=== PATIENT | female | born 1995 | race Two or more races ===

== ENCOUNTER 2016-05-16 20:23 | Observation (INO) | payer MEDICAID ==
[2016-05-16 21:12] LABS: Urine Bilirubin Negative (Negative); Urine Blood Negative /uL (Negative); Urine Color Yellow (Yellow); Urine Glucose Normal (Normal); Urine Ketone TRACE (Negative); Urine Mucus FEW (None Seen); Urine Nitrite Negative (Negative); Urine RBC 3 /hpf (0 - 4); Urine Squamous Epithelial Cell FEW /hpf (<5); Urine pH 6.5 (5.0-8.0)
== END 2016-05-16 22:26 | disposition home or self-care (01) | DRG 566 ==
LOC: LDRP 20:23
PROVIDERS: ADMIT Specialist; ATTEND Specialist
DX: O26.893 Other specified pregnancy related conditions, third trimester (principal); R10.2 Pelvic and perineal pain; O62.9 Abnormality of forces of labor, unspecified; Z3A.35 35 weeks gestation of pregnancy
CPT/HCPCS: 59025; 76815; 81001; G0378; G0434; 96365; 96366

== ENCOUNTER 2016-06-16 09:35 | Observation (INO) | payer MEDICAID ==
[2016-06-16] MEDS ORDERED: PREN-153 OR (10:51)
== END 2016-06-16 10:45 | disposition home or self-care (01) | DRG 566 ==
LOC: LDRP 09:35
PROVIDERS: ADMIT Specialist; ATTEND Specialist
DX: O62.9 Abnormality of forces of labor, unspecified (principal); O48.0 Post-term pregnancy; Z3A.40 40 weeks gestation of pregnancy
CPT/HCPCS: 59025; 81002; G0378

== ENCOUNTER 2016-06-16 23:01 | Inpatient (IN) | payer MEDICAID ==
[~2016-06-16] VITALS: Ht 162.6 cm; Wt 72.6 kg
[~2016-06-16 23:01] MED LIST: PREN-153 OR
[2016-06-16] MEDS ORDERED: PENICILLIN G POT 5MIL/D5 50ML 50 ML IV ONE ×2 (23:27→23:45)
[2016-06-16] MEDS ORDERED: LACT. RINGERS/OXYTOCIN 20UNITS 1,000 ML IV SCH (23:32)
[2016-06-16] MEDS: LACTATED RINGER'S 1,000 ML IV SCH (23:40)
[2016-06-16] MEDS ORDERED: LIDOCAINE 2%HCL (LOCAL ANESTH.) INJ 20ML MDV IJ ONE (23:45)
[2016-06-16] MEDS ORDERED: DERMOPLAST 60ML BOTTLE TOP PRN (23:45)
[2016-06-16] MEDS ORDERED: WITCH HAZEL-GLYCERIN PAD TOP PRN (23:45)
[2016-06-16] MEDS ORDERED: PHISODERM TOP SOLN 240ML BTL TOP PRN (23:45)
[2016-06-16] MEDS ORDERED: CARBOPROST TROMETHAMINE 250 MCG/1ML VIAL IM PRN (23:45)
[2016-06-16] MEDS ORDERED: METHYLERGONOVINE MALEATE 0.2 MG/ML AMP IM PRN (23:45)
[2016-06-16] MEDS ORDERED: NALBUPHINE HCL 10 MG/1ml INJECTION IV PRN (23:45)
[2016-06-17 00:15] LABS: Basophils # (auto) 0 uL; Basophils % (auto) 0.3 % (0.0-2.0); Eosinophils # (auto) 0 uL; Eosinophils % (auto) 0.1 % (0.0-7.0); Hematocrit 38.2 % (36.0-46.0); Hemoglobin 12.6 g/dL (12.2-16.2); Lymphocytes # (auto) 1.3 uL; Lymphocytes % (auto) 15.1 % (10.0-50.0); Mean Corpuscular Hemoglobin 27.7 pg (28.0-32.0); Mean Corpuscular Hgb Conc. 33.1 g/dL (32.0-36.0); Mean Corpuscular Volume 83.7 fL (80.0-100.0); Mean Platelet Volume 8.9 fL (7.4-10.4); Monocytes # (auto) 0.9 uL; Monocytes % (auto) 10.3 % (0.0-12.0); Neutrophils # (auto) 6.7 uL; Neutrophils % (auto) 74.2 % (37.0-80.0); Platelet Count (auto) 187 10^3/uL (140-450); Red Cell Distribution Width 13.6 % (11.6-16.0); White Blood Cell 8.9 10^3/uL (4.4-10.8)
[2016-06-17 00:24] LABS: Partial Thromboplastin Time 27.8 sec (22.64-33.71); Prothrombin Time 9.4 sec (9.37-12.3)
[2016-06-17 00:28] LABS: INR 0.87 (0.9-1.15)
[2016-06-17 00:31] LABS: Urine Bilirubin Negative (Negative); Urine Blood Negative /uL (Negative); Urine Color Yellow (Yellow); Urine Glucose Normal (Normal); Urine Hyaline Cast FEW /lpf (0 - 2); Urine Mucus FEW (None Seen); Urine Nitrite Negative (Negative); Urine RBC 2 /hpf (0 - 4); Urine Squamous Epithelial Cell FEW /hpf (<5); Urine Urobilinogen Normal (Negative)
[2016-06-17 00:32] LABS: Urine Ketone 2+ (Negative)
[2016-06-17 00:33] LABS: Albumin 2.8 g/dL (3.4-5.0); BUN/Creatinine Ratio 12.3; Calcium 8.5 mg/dL (8.5-10.1); Potassium 3.5 mmol/L (3.5-5.1)
[2016-06-17 00:36] LABS: Bilirubin, Total 0.4 mg/dL (0.2-1.0)
[2016-06-17] MEDS ORDERED: NALOXONE HCL 0.4 MG/ML VIAL IV ONE (00:45)
[2016-06-17] MEDS ORDERED: LIDOCAINE HCL 2 %PF INJ 10ML AMP IJ ONE (00:45)
[2016-06-17] MEDS ORDERED: ePHEDrine SULFATE 50 MG/ML AMP IV ONE (00:45)
[2016-06-17] MEDS ORDERED: fentaNYL W ROPIVACAINE 150 ML EPI SCH (00:45)
[2016-06-17] MEDS ORDERED: fentaNYL CITRATE 100 MCG/2 ML VL IV ONE (00:45)
[2016-06-17] MEDS: LACTATED RINGER'S 1,000 ML IV SCH (03:41)
[2016-06-17] MEDS ORDERED: PENICILLIN G POTASSIUM 2,500,000 UNITS in D5W 5% 50 ML IV SCH ×2 (03:45→12:15)
[2016-06-17] MEDS ORDERED: LACT. RINGERS/OXYTOCIN 20UNITS 1,000 ML IV SCH (08:11)
[2016-06-17] MEDS: DOCUSATE CALCIUM 240 MG CAP PO SCH (10:43)
[2016-06-17] MEDS: IBUPROFEN 600 MG TAB PO PRN ×3 (10:43→23:35)
[2016-06-17 12:25] VITALS: BP 113/63
[2016-06-17 13:33] LABS: Basophils # (auto) 0 uL; Basophils % (auto) 0.1 % (0.0-2.0); Eosinophils # (auto) 0 uL; Hematocrit 31.8 % (36.0-46.0); Hemoglobin 10.5 g/dL (12.2-16.2); Lymphocytes % (auto) 7.4 % (10.0-50.0); Mean Corpuscular Hemoglobin 27.8 pg (28.0-32.0); Mean Corpuscular Volume 84.2 fL (80.0-100.0); Mean Platelet Volume 9.1 fL (7.4-10.4); Monocytes # (auto) 1.4 uL; Monocytes % (auto) 10.4 % (0.0-12.0); Neutrophils # (auto) 10.9 uL; Neutrophils % (auto) 82.1 % (37.0-80.0); Platelet Count (auto) 218 10^3/uL (140-450); Red Cell Distribution Width 14.7 % (11.6-16.0); White Blood Cell 13.3 10^3/uL (4.4-10.8)
[2016-06-17] MEDS: ACETAMINOPHEN 325 MG TAB PO PRN ×2 (14:09→17:59)
[2016-06-17 15:40] VITALS: BP 109/56
[2016-06-17 19:00] VITALS: BP 108/69
[2016-06-17 23:30] VITALS: BP 104/69
[2016-06-18 03:30] VITALS: BP 118/58
[2016-06-18] MEDS ORDERED: TETANUS-DIPTH-ACEL PERTUSSIS 0.5ML SYRG IM ONE (07:00)
[2016-06-18 07:56] VITALS: BP 107/66
[2016-06-18] MEDS: DOCUSATE CALCIUM 240 MG CAP PO SCH (09:54)
[2016-06-18 12:20] VITALS: BP 107/66
== END 2016-06-18 12:20 | disposition home or self-care (01) | DRG 560 ==
LOC: LDRP 23:01 → OBSVTOIN 23:01
PROVIDERS: ADMIT Specialist; ATTEND Specialist
PROC: 10D07Z6 Extraction of Products of Conception, Vacuum, Via Natural or Artificial Opening (ICD-10-PCS; principal; 2016-06-17)
PROC: 0W8NXZZ Division of Female Perineum, External Approach (ICD-10-PCS; 2016-06-17)
PROC: 3E0S3CZ (ICD-10-PCS; 2016-06-17)
PROC: 00HU33Z Insertion of Infusion Device into Spinal Canal, Percutaneous Approach (ICD-10-PCS; 2016-06-17)
PROC: 3E0234Z Introduction of Serum, Toxoid and Vaccine into Muscle, Percutaneous Approach (ICD-10-PCS; 2016-06-18)
DX: O69.81X0 Labor and delivery complicated by cord around neck, without compression, not applicable or unspecified (principal); O99.824 Streptococcus B carrier state complicating childbirth; Z37.0 Single live birth; Z3A.40 40 weeks gestation of pregnancy; Z23 Encounter for immunization
CPT/HCPCS: 36415; 59025; 59409; 62282; 80053; 80307; 81001; 81002; 85025; 85610; 85730; 86850; 86900; 86901; 90472; 90715; 94760; 96365; 96366; 96372; G0378; J2540; J2590; J3010; J7060